=== PATIENT | female | born 1940 | race Asian ===

== ENCOUNTER 2018-10-20 10:03 | Observation (INO) | payer MEDICARE, OTHER ==
[2018-10-20] MEDS ORDERED: diPHENhydraMINE PO* 25 MG ONE (10:49)
[2018-10-20] MEDS ORDERED: Diazepam TAB(*) 5 MG ONE (10:49)
[2018-10-20] MEDS ORDERED: Iohexol 350 (CONTRAST) 200 ML MDV IV ONE (11:56)
[2018-10-20] MEDS ORDERED: Lidocaine 1% INJ* 10 MG/ML 30 ML SDV ONE (11:56)
[2018-10-20] MEDS ORDERED: Midazolam* 1 MG/ML 10 ML VIAL (10 MG) ONE (11:56)
[2018-10-20] MEDS ORDERED: HEPARIN 2 UNIT/ML IV ONE (11:56)
[2018-10-20] MEDS ORDERED: fentaNYL* 50 MCG/ML 2 ML VIAL (100 MCG VIAL) ONE (11:56)
[2018-10-20] MEDS ORDERED: Acetaminophen TAB* 325 MG PO PRN (13:04)
[2018-10-20] MEDS ORDERED: NS 0.9% 1000 ML* 1,000 ML IV SCH (13:15)
[2018-10-20] MEDS ORDERED: LORazepam TAB(*) 0.5 MG PO PRN (22:43)
[2018-10-21 07:26] LABS: Hematocrit 41 % (35-47); Hemoglobin 13.3 g/dl (12.0-16.0); Mean Corpuscular HGB Conc 33 g/dl (31-36); Mean Corpuscular Hemoglobin 30 pg (27-31); Mean Corpuscular Volume 90 fL (80-97); Mean Platelet Volume 7.2 fL (7.4-10.4); Platelet Count 132 10^3/ul (150-450); Red Blood Count 4.49 10^6/ul (4.00-5.40); Red Cell Distribution Width 15 % (10.5-15); White Blood Count 6.5 10^3/ul (3.5-10.8)
[2018-10-21 07:36] VITALS: BP 114/52
[2018-10-21] MEDS ORDERED: LORazepam TAB(*) 0.5 MG PO PRN (08:04)
[2018-10-21] MEDS ORDERED: CMC: Dabigatran CAP(NF) 150 MG CAP PO SCH (09:00)
[2018-10-21] MEDS ORDERED: Metoprolol Succinate XL TAB* 25 MG PO SCH (09:00)
--- NOTE | 2018-10-21 13:32 | DS ---
CC: Dr. Karo Leal DISCHARGE SUMMARY: DATE OF ADMISSION: 10/20/18 DATE OF DISCHARGE: 10/21/18 INDICATION FOR ADMISSION: Cardiac catheterization, aortic stenosis. HISTORY OF PRESENT ILLNESS: The patient is a 77-year-old female with a history of chronic atrial fib rillation, history of rheumatic heart disease. 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 The patient has developed severe- to-critical aortic stenosis. The patient underwent ca rdiac catheterization yesterday. The catheterization showed that she has karziv-zj-difucely aortic s tenosis, 2 to 3+ mitral regurgitation, no coronary artery disease, ejection fraction of 45%. After t he procedure, all sheaths and catheters were removed. The patient held pressure for 25 minutes. Aft er about 3 hours, the patient had a rebleed of her femoral arterial site and required further compre ssion. The patient was admitted overnight for observation. The patient had no difficulties overnigh t. She has no complaints. DISCHARGE MEDICATIONS: 1. Toprol-XL 25 mg twice a day. 2. Lorazepam 0.5 mg q.h.s. 3. Multivitamin a day. 4. Simvastatin 20 mg a day. 5. Pradaxa 150 mg b.i.d. 6. Vitamin D and Caltrate. ALLERGIES: No known drug allergies. PHYSICAL EXAM: Height is 5 feet 1 inches, weight is 135 pounds, temperature 98.3, heart rate is 84, blood pressure 114/72, respiratory rate is 20, oxygen saturation 96% on room air. Sclerae anicteric. Oropharynx is pink without erythema. Carotids are 2+ with soft bilateral bruits. JVD is normal. T hyroid is normal. Cardiac Exam: S1, S2, with a 3/6 systolic ejection murmur heard best at the right upper sternal border. PMI is normal. Lungs are clear to auscultation. Extremities showed no edema. She has 2+ pulse throughout her cardiac cath site and the right femoral area is stable. There is no hematoma. There is no bruise on exam. IMPRESSION: This is a 77-year-old female status post cardiac catheterization. Her cardiac catheteri zation shows klhmsb-oh-qpahggsk aortic stenosis, 2 to 3+ mitral regurgitation, no coronary artery dis ease. DISPOSITION: The patient will be discharged from the hospital. FOLLOWUP: The patient will be evaluated for aortic valve replacement. [id number]/[facility] #: [id number]
[2018-10-21] MEDS ORDERED: Atorvastatin* 10 MG TAB PO SCH (21:00)
--- NOTE | 2018-10-21 22:38 | CATH ---
CC: Dr. Karo Leal; Dr. Thony Ragsdale, [facility] Cardiology Department, [place], [place] * CARDIAC CATHETERIZATION: DATE OF STUDY: 10/20/18 PROCEDURE: Cardiac catheterization including right heart catheterization, left heart catheterization, left ventriculogram, coronary angiography. INDICATION: Aortic stenosis. HISTORY: The patient is a 77-year-old female with a history of rheumatic heart disease, history of mitral valve commissure artery in the '70s, who has been followed by my office. She has had progressive aortic stenosis. The patient now has severe aortic stenosis. Cardiac catheterization was recommended. DESCRIPTION OF PROCEDURE: The patient was brought to the cardiac catheterization lab in a fasting state. Informed consent had been obtained prior to the procedure and all labs were reviewed. The patient was placed supine on the procedure table. Her femoral arteries were prepped and draped in the usual manner. 1% lidocaine was used for local anesthesia. The right femoral vein was entered by a modified Seldinger technique and an 8-Turkmen sheath introducer was placed. The patient underwent right heart catheterization including multiple hemodynamic and oxygen saturation readings. The right femoral artery was entered by a modified Seldinger technique and a 6- Turkmen sheath introducer was placed. The patient underwent left heart catheterization, left ventriculogram, coronary angiography using a 6-Turkmen Pigtail catheter, 6-Turkmen JL4 catheter, and a 6-Turkmen JR4 catheter. At the end of the procedure, all sheaths and catheters were removed. The patient tolerated the procedure well with no complications. A total of 60 cc of Omnipaque dye was used. A total of 6.7 minutes of fluoro time was used. FINDINGS: Hemodynamics: Right atrial pressure with a mean of 13 mmHg. Right ventricular pressure of 45/1 with an end-diastolic pressure of 9. Pulmonary capillary wedge pressure of 23. Pulmonary artery pressure 47/21 with a mean of 32. Central aortic blood pressure 158/83 with a mean of 114. Left ventricular pressure 169/2 with an end-diastolic pressure of 21. Oxygen saturation: Central aortic saturation 96%, pulmonary artery saturation 62%. Cardiac output by Papa 2.9 L per minute. Cardiac output by thermodilution 3.1 L per minute. Aortic valve gradient: The mean gradient was 12 mmHg. Calculated valve area by thermodilution cardiac output was 0.8 cm2, index to body size 0.5 cm2 consistent with severe aortic stenosis. Left ventriculogram: Left ventricle was normal in size. Overall systolic function of the left ventricle was mildly reduced. Estimated ejection fraction 40% to 45%. There was apical akinesis. There was anterior wall hypokinesis. There was 2+ mitral regurgitation. Aortic valve was calcified with restricted opening. The ascending aorta was normal. CORONARY ARTERIES: 1. Left main: The left main was normal in size. It bifurcated into the LAD and circumflex. There was no evidence of stenosis. 2. Left anterior descending artery: The LAD was normal in size. It gave off 1 diagonal vessel. There was no evidence of stenosis. 3. Left circumflex artery: Circumflex artery was normal in size. It gave off 2 obtuse marginal branches. There was no evidence of stenosis. 4. Right coronary artery: The RCA was a small nondominant vessel without evidence of stenosis. IMPRESSION: 1. Severe aortic stenosis with a calculated valve area of 0.8 cm2 and index to body surface area of 0.5 cm2. 2. Xuhd-jp-arqspsox pulmonary hypertension. 3. Mildly reduced left ventricular systolic function. 4. 2+ mitral regurgitation. 5. Normal coronary arteries. RECOMMENDATION: The patient will be considered for aortic valve replacement. The patient will likely benefit from TAVR aortic valve replacement. [id number]/[facility] #: [id number] MTDD
== END 2018-10-21 10:29 | disposition home or self-care (01) ==
LOC: CHICATH 10:03 → MEDTELE 17:28
PROVIDERS: ADMIT Specialist; ATTEND Specialist
DX: I48.2 Chronic atrial fibrillation (principal); I34.0 Nonrheumatic mitral (valve) insufficiency; I35.9 Nonrheumatic aortic valve disorder, unspecified; E78.00 Pure hypercholesterolemia, unspecified; I05.0 Rheumatic mitral stenosis; R06.02 Shortness of breath
CPT/HCPCS: 36415; 82803; 85027; 93460; 96372; 99156; 99157; A9270-GY; C1769; C1887; G0378; J1644; J2250; J3010

== ENCOUNTER 2023-11-19 10:52 | Observation (INO) ==
[2023-11-19 11:19] LABS: ABS Eosinophils 0.2 10^3/uL (0.0-0.5); ABS Monocytes 0.3 10^3/uL (0.0-0.9); ABS Neutrophils 4.5 10^3/uL (1.5-7.6); ABS Nucleated RBC 0.01 10^3/ul; Eosinophil % 2.7 %; Hematocrit 45.5 % (35-45); Hemoglobin 14.7 g/dL (11.5-14.3); Lymphocyte % 16.8 %; Mean Corpuscular Hemoglobin 29.2 pg (27-33); Mean Corpuscular Hgb Conc 32.3 g/dL (31-36); Mean Corpuscular Volume 90.3 fL (80-97); Mean Platelet Volume 7.5 fL (7.5-11.2); Nucleated Red Blood Cells % 0.1 %/100WBC (0.0-0.8); Platelet Count 133 10^3/uL (150-450); Red Blood Count 5.04 10^6/uL (3.63-4.92); White Blood Count 6.1 10^3/uL (3.8-11.8)
[2023-11-19 11:30] LABS: INR 1.25 (0.83-1.13)
[2023-11-19 11:40] LABS: Albumin/Globulin Ratio 1.3 (1-3); Creatinine, Serum 0.67 mg/dL (0.51-0.95); Total Bilirubin 1.7 mg/dL (0.2-1.0); eGFR CKD-EPI 87.2 (>60)
[2023-11-19 12:58] LABS: High Sensitivity Troponin 1 Hr 11 pg/mL (<15)
[2023-11-19] MEDS: Iohexol 350 (CONTRAST) 500 ML MDV IV ONE (14:32)
[2023-11-19] MEDS ORDERED: [UNRECOGNIZED DRUG - OTHER] PO ONE (16:34)
[2023-11-19] MEDS: Al Hydrox/Mg Hydrox/Simet LIQ 30 ML UDC PO ONE (17:18)
[2023-11-19] MEDS: CMC:Dabigatran 150 mg CAP (NF) PO SCH (21:16)
[2023-11-19 21:36] LABS: ABS Eosinophils 0.1 10^3/uL (0.0-0.5); ABS Lymphocytes 1.1 10^3/uL (1.0-4.8); ABS Monocytes 0.5 10^3/uL (0.0-0.9); ABS Neutrophils 3.7 10^3/uL (1.5-7.6); Eosinophil % 1.7 %; Hematocrit 43.2 % (35-45); Hemoglobin 14.1 g/dL (11.5-14.3); Lymphocyte % 20.3 %; Mean Corpuscular Hemoglobin 29.4 pg (27-33); Mean Corpuscular Hgb Conc 32.8 g/dL (31-36); Mean Corpuscular Volume 89.8 fL (80-97); Mean Platelet Volume 7.4 fL (7.5-11.2); Nucleated Red Blood Cells % 0.1 %/100WBC (0.0-0.8); Platelet Count 124 10^3/uL (150-450); Red Cell Distribution Width 16.1 % (12-17); White Blood Count 5.4 10^3/uL (3.8-11.8)
[2023-11-19 21:52] LABS: Calcium 9.9 mg/dL (8.6-10.3); Creatinine, Serum 0.67 mg/dL (0.51-0.95); Potassium 3.9 mmol/L (3.5-5.0); eGFR CKD-EPI 87.2 (>60)
[2023-11-20] MEDS: Calcium Carb (TUMS) 500 mg CHEW TAB PO ONE (01:10)
[2023-11-20] MEDS: Cholecalciferol (VIT D3) 400 units TAB PO SCH (08:46)
[2023-11-20 13:52] VITALS: BP 120/76
== END 2023-11-20 16:16 | disposition home or self-care (01) ==
LOC: ED 10:52 → EDHOLD 10:52 → SUATTDRO 18:06 → MEDTELE 20:03
PROVIDERS: ADMIT Internal Medicine; ATTEND Student in an Organized Health Care Education/Training Program